=== PATIENT | female | born 1985 | race American Indian/Alaskan Native ===

== ENCOUNTER 2018-08-15 20:08 | Emergency (ER) | payer SELFPAY ==
[2018-08-15 20:22] VITALS: BP 119/72
[2018-08-16] MEDS ORDERED: IBUPROFEN PO ONE (02:29)
--- NOTE | 2018-08-16 02:56 | XRay Report ---
FINAL REPORT EXAM: XR TIBIA FIBULA 2V RT HISTORY: RLE pain swelling COMPARISON: None available. FINDINGS: Two views the right tibia and fibula obtained. Bony structures are intact. Joint spaces are preserve d. No acute fracture dislocation. IMPRESSION: No acute bony abnormality.
--- NOTE | 2018-08-16 03:04 | Emergency Department Report ---
ED Lower Extremity HPI - General Chief Complaint: Extremity Injury, Lower Stated Complaint: RIGHT LEG PAIN Time Seen by Provider: 08/16/18 02:26 Source: patient Mode of arrival: Ambulatory Limitations: No Limitations - History of Present Illness Initial Comments: Patient is a 33-year-old female who presents for evaluation of RLE 5/10 aching swelling no numbness no tingling, pt exacerbated by prolonged standing weight bearing, pt is ambulatory to baseline per pt denies fall injury or trauma. MD Complaint: leg injury Onset/Timin -: year(s) Injury: Leg: Right Type of Injury: unknown Place: home Severity: moderate Severity scale (0 -10): 5 Improves With: rest Worsens With: weight bearing, movement, palpation Associated Symptoms: swelling, ambulatory. denies: numbness, tingling - Related Data Previous Rx's Medication Instructions Recorded Last Taken Type Cyclobenzaprine [Flexeril] 10 mg PO BID PRN #20 tablet 08/16/18 Unknown Rx Menthol/Camphor [[place] 1 applicatio TP QID PRN #1 tube 08/16/18 Unknown Rx Ointment] Naproxen [Naprosyn] 500 mg PO BID PRN #30 tablet 08/16/18 Unknown Rx Allergies Allergy/AdvReac Type Severity Reaction Status Date / Time No Known Allergies Allergy Unverified 08/15/18 20:52 ED Review of Systems ROS: Stated complaint: RIGHT LEG PAIN Other details as noted in HPI Constitutional: denies: chills, fever Eyes: denies: eye pain, eye discharge, vision change ENT: denies: ear pain, throat pain Respiratory: denies: cough, shortness of breath, wheezing Cardiovascular: denies: chest pain, palpitations Endocrine: no symptoms reported Gastrointestinal: denies: abdominal pain, nausea, diarrhea Genitourinary: as per HPI Musculoskeletal: other (LE pain ). denies: back pain, joint swelling, arthralgia Skin: denies: rash, lesions Neurological: denies: headache, weakness, paresthesias Psychiatric: denies: anxiety, depression Hematological/Lymphatic: denies: easy bleeding, easy bruising ED Past Medical Hx - Past Medical History Previous Medical History?: No - Surgical History Past Surgical History?: Yes Additional Surgical History: BILATERAL FEET - Social History Smoking Status: Never Smoker Substance Use Type: None - Medications Home Medications: Home Medications Medication Instructions Recorded Confirmed Last Taken Type Cyclobenzaprine [Flexeril] 10 mg PO BID PRN #20 tablet 08/16/18 Unknown Rx Menthol/Camphor [[place] 1 applicatio TP QID PRN #1 tube 08/16/18 Unknown Rx Ointment] Naproxen [Naprosyn] 500 mg PO BID PRN #30 tablet 08/16/18 Unknown Rx ED Physical Exam - General Limitations: No Limitations General appearance: alert, in no apparent distress - Head Head exam: Present: atraumatic, normocephalic, normal inspection - Eye Eye exam: Present: normal appearance, PERRL, EOMI - ENT ENT exam: Present: normal exam, mucous membranes moist - Neck Neck exam: Present: normal inspection, full ROM, lymphadenopathy - Respiratory Respiratory exam: Present: normal lung sounds bilaterally. Absent: respiratory distress, wheezes, stridor, chest wall tenderness - Cardiovascular Cardiovascular Exam: Present: regular rate, normal rhythm, normal heart sounds. Absent: systolic murmur, diastolic murmur, rubs, gallop - GI/Abdominal GI/Abdominal exam: Present: soft, normal bowel sounds. Absent: distended, tenderness, rigid, bruit, hernia - Rectal Rectal exam: Present: deferred - Extremities Exam Extremities exam: Present: normal inspection, full ROM, tenderness (right LE tenderness no ecchymosis no deformity rom intact distal pulses intact ), normal capillary refill. Absent: pedal edema, joint swelling, calf tenderness - Expanded Lower Extremity Exam Right Lower Leg exam: Present: full ROM. Absent: tenderness, swelling, abrasion, laceration, ecchymosis, deformity, crepidus, dislocation, erythema, palpable cord, Alex's sign Ankle exam: Present: normal inspection, full ROM Foot/Toe exam: Present: normal inspection, full ROM Neuro vascular tendon exam: Present: no vascular compromise. Absent: pulse deficit, abnormal cap refill, motor deficit, sensory deficit, tendon deficit Gait: Positive: observed and normal - Back Exam Back exam: Present: normal inspection, full ROM. Absent: tenderness, CVA tenderness (R), CVA tenderness (L), rash noted - Neurological Exam Neurological exam: Present: alert, oriented X3, CN II-XII intact, normal gait, reflexes normal. Absent: motor sensory deficit - Psychiatric Psychiatric exam: Present: normal affect, normal mood - Skin Skin exam: Present: warm, dry, intact, normal color. Absent: rash ED Course Vital Signs 08/15/18 08/15/18 20:16 20:47 Temperature 97.8 F 97.8 F Pulse Rate 87 80 Respiratory 18 18 Rate Blood Pressure 119/72 119/72 O2 Sat by Pulse 97 98 Oximetry ED Lower Extremity MDM - Radiology Data Radiology results: report reviewed, image reviewed FINAL REPORT EXAM: XR TIBIA FIBULA 2V RT HISTORY: RLE pain swelling COMPARISON: None available. FINDINGS: Two views the right tibia and fibula obtained. Bony structures are intact. Joint spaces are preserved. No acute fracture dislocation. IMPRESSION: No acute bony abnormality. Transcribed By: LMA Dictated By: PETER OLIVER MD Electronically Authenticated By: PETER OLIVER MD Signed Date/Time: 08/16/18255 DD/ 3 TD/TT: 08/16/18253 - Medical Decision Making this is recurrent musculoskeletal pain no calf pain neg homans sign plan: NSAID, Muscle Relaxant, Analgesic [place], pt will follow up with pcp in 2-3 days requesting referral to orthopedic surgery, will refer to same as requested. Critical care attestation.: If time is entered above; I have spent that time in minutes in the direct care of this critically ill patient, excluding procedure time. ED Disposition Clinical Impression: Musculoskeletal pain of right lower extremity Disposition: DC-01 TO HOME OR SELFCARE Is pt being admited?: No Does the pt Need Aspirin: No Condition: Stable Instructions: Musculoskeletal Pain (ED) Prescriptions: Cyclobenzaprine [Flexeril] 10 mg PO BID PRN #20 tablet PRN Reason: Muscle Spasm Menthol/Camphor [[place] Ointment] 1 applicatio TP QID PRN #1 tube PRN Reason: pain Naproxen [Naprosyn] 500 mg PO BID PRN #30 tablet PRN Reason: pain Referrals: MADDIE MCLAUGHLIN MD [Staff Physician] - 3-5 Days [facility] [Outside] - 3-5 Days Forms: Work/School Release Form(ED) Time of Disposition: 03:23
== END 2018-08-16 03:50 | disposition home or self-care (01) ==
LOC: ED 20:08
DX: M79.604 Pain in right leg (principal); R22.41 Localized swelling, mass and lump, right lower limb
CPT/HCPCS: 99283